=== PATIENT | female | born 2000 | race African-American/Black ===

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

== ENCOUNTER 2022-08-05 18:08 | Emergency (ER) | payer OTHER ==
[~2022-08-05] VITALS: Ht 170.2 cm; Wt 57.7 kg
[2022-08-05 18:30] VITALS: BP 122/70
[2022-08-05 19:45] LABS: Urine Bacteria NONE SEEN /hpf (None Seen); Urine Blood 3+ /uL (Negative); Urine Mucus FEW (None Seen); Urine Specific Gravity 1.029 (1.001-1.035); Urine WBC 24 /hpf (0 - 5)
[2022-08-05] MEDS ORDERED: ALPRAZolam 0.5 MG TAB PO ONE (20:30)
[2022-08-05] MEDS ORDERED: ALPR0.5T PO (21:18)
== END 2022-08-05 21:27 | disposition home or self-care (01) ==
LOC: ER 18:08
DX: F41.9 Anxiety disorder, unspecified (principal); R07.89 Other chest pain; F32.9 Major depressive disorder, single episode, unspecified
CPT/HCPCS: 81001

== ENCOUNTER 2024-05-02 19:33 | Emergency (ER) | payer MEDICAID, OTHER ==
[~2024-05-02] VITALS: Ht 170.2 cm; Wt 73.6 kg
[~2024-05-02 19:33] MED LIST changes: -ACETAMINOPHEN 325 MG TAB PO ONE; +ALPR0.5T PO; -LIDOCAINE 2%HCL (LOCAL ANESTH.) INJ 20ML MDV ONE; -POTASSIUM CHL 20 Meq TABLET PO ONE; -cefTRIAXone SOD 1,000 MG VL IM ONE
[2024-05-02 20:18] VITALS: BP 101/54; PULSE 89; RESP 18; TEMP 98.3; O2SAT 100
--- NOTE | 2024-05-02 21:01 | ED.PDOC ---
HPI Allergic reaction HPI Comments Patient complaining of hives on left shoulder and on abdomen. Patient states she was seen at [facility] earlier in the day for sore throat. She was given a shot of Rocephin. States she was seen approximate 4:00 p.m. today. States the hives have started to improve. Has not taken any further medications. Alena ent denies any trouble breathing denies any swelling in the throat. Chief Complaint: Allergic Reaction Time Seen by MD: 20:18 Primary Care Provider: NONE Reviewed Notes: Nurses Notes Allergies: Coded Allergies: NO KNOWN ALLERGIES (Unverified , 02/25/19) Home Meds Active Scripts Alprazolam (Xanax) 0.5 Mg Tb, 1 TAB PO DAILY PRN for 2 Days, #2 TAB Prov:ELLY ADAIR 08/05/22 Information Source: Patient Mode of Arrival: Ambulatory Severity: Moderate Past Medical History PAST MEDICAL HISTORY: Denies Surgical History: Denies all surgeries [employer] History: Ovarian Cysts Family History Family History: Reviewed,noncontributory to illness Social History Smoker: Non-Smoker Alcohol: Denies ETOH Use Drugs: Denies Drug Use Lives In: Home Constitutional: denies: chills, diaphoresis, fatigue, fever, malaise, sweats, weakness, others EENTM: reports: throat pain; denies: blurred vision, double vision, ear bleeding, ear discharge, ear drainage, ear pain, ear ringing, eye pain, eye redness, hearing loss, mouth pain, mouth swelling, nasal discharge, nose bleeding, nose congestion, nose pain, photophobia, tearing, throat swelling, voice changes, others Respiratory: denies: cough, hemoptysis, orthopnea, SOB at rest, shortness of breath, SOB with excertion, stridor, wheezing, others Cardiovascular: denies: chest pain, dizzy spells, diaphoresis, Dyspnea on exertion, edema, irregular heart beat, left arm pain, lightheadedness, palpitations, PND, syncope, others Gastrointestinal: denies: abdomen distended, abdominal pain, blood streaked bowels, constipated, diarrhea, dysphagia, difficulty swallowing, hematemesis, melena, nausea, poor appetite, poor fluid intake, rectal bleeding, rectal pain, vomiting, others Genitourinary: denies: abnormal vagina bleeding, burning, dyspareunia, dysuria, flank pain, frequency, hematuria, incontinence, pain, , vagina discharge, urgency, others Neurological: denies: dizziness, fainting, headache, left sided numbness, left sided weakness, numbness, paresthesia, pre-existing deficit, right sided numbness, right sided weakness, seizure, speech problems, tingling, tremors, weakness, others Musculoskeletal: denies: back pain, gout, joint pain, joint swelling, muscle pain, muscle stiffness, neck pain, others Integumetry: reports: rash; denies: bruises, change in color, change in hair/nails, dryness, laceration, lesions, lumps, wounds, others Allergic/Immunocompromised: denies: Difficulty Healing, Frequent Infections, Hives, Itching, others Physical Exam General Appearance: No Apparent Distress, Normal HEENT: Normal ENT Inspection, Pharynx Normal, TMs Normal Neck: Full Range of Motion, Non-Tender, Normal, Normal Inspection Respiratory: Chest Non-Tender, Lungs Clear, No Accessory Muscle Use, No Respiratory Distress, Normal Breath Sounds Cardiovascular: No Edema, No JVD, No Murmur, No Gallop, Normal Peripheral Pulses, Regular Rate/Rhythm Breast Exam: Deferred Gastrointestinal: No Organomegaly, Non Tender, No Pulsatile Mass, Normal Bowel Sounds, Soft Genitalia: Deferred Pelvic: Deferred Rectal: Deferred Extremities: No calf tenderness, Normal capillary refill, Normal inspection, Normal range of motion, Non-tender, No pedal edema Musculoskeletal : Apperance: Normal Neurologic: Alert, site identification specialist II-XII nml as Tested, No Motor Deficits, Normal Affect, Normal Mood, No Sensory Deficits Cerebellar Function: Normal Reflexes: Normal Skin: Dry, Normal Color, Warm Lymphatic: No Adenopathy Was a procedure done? Was a procedure done?: No Differential diagnosis (all) Differential Diagnosis: Anaphylaxis, Angioedema, Drug Reaction X-Ray, Labs, Meds, VS Vital Signs Date Time Temp Pulse Resp B/P (MAP) Pulse Ox O2 Delivery O2 Flow Rate FiO2 05/02/24 20:18 98.3 89 18 101/54 (70) 100 98.3 X-Ray, Labs, Meds, VS Comment Imaging: X-rays and CT scans were reviewed and interpreted by this provider, imaging shows no fractures and no pathological disease. Pending radiology review. Laboratory: Labs reviewed and interpreted by this provider. No significant abnormalities noted. Patient has prior medical visits reviewed. Med reconciliation performed Vital signs reviewed Time of 1ST Reevaluation: 21:00 Reevaluation 1ST: Improved Patient Education/Counseling: Diagnosis, Treatment, Need For Follow Up (Follow up with PCP in the next available appointment. Return to the emergency department if symptoms worsen.) Family Education/Counseling: Diagnosis Departure 1 Departure Time of Disposition: 21:01 Impression: Primary Impression: Allergic reaction Qualified Codes: T78.40XA - Allergy, unspecified, initial encounter Disposition: HOME / SELF CARE / HOMELESS Condition: Fair Discharged With: Self Critical Care Note Critical Care Time?: No Stability Stability form required: No Heart Score Heart Score: Heart Score Response (Comments) Value History N/A 0 EKG N/A 0 Age N/A 0 Risk Factors N/A 0 Troponin N/A 0 Total 0 ROSENDO SUAZO May 02, 2024 21:01
== END 2024-05-02 21:24 | disposition home or self-care (01) ==
LOC: ER 19:44
DX: T78.40XA Allergy, unspecified, initial encounter (principal); X58.XXXA Exposure to other specified factors, initial encounter